=== PATIENT | male | born 1965 | race Caucasian/White ===

== ENCOUNTER 2021-03-04 11:56 | Emergency (ER) | payer OTHER, SELFPAY ==
--- NOTE | ~2021-03-04 | XR_ITS ---
EXAMINATION: XR foot LT min 3V DATE: 03/04/2021 12:11 INDICATION: Right foot pain, initial encounter TECHNIQUE: Dorsoplantar, lateral, and 2 oblique views of the left foot were obtained. COMPARISON: None. FINDINGS: There is an acute, traumatic fracture of the fourth middle phalanx which extends to the pro ximal interphalangeal joint. No definite acute fracture is identified. There is soft tissue swelling of the fourth toe. There is fusion of the third through fifth distal interphalangeal joints. Posterio r and plantar calcaneal enthesophytes are noted. IMPRESSION: 1. Acute fracture of the fourth middle phalanx which extends to the proximal interphalangeal joint. Reviewed, dictated and finalized at location A. IMPRESSION: 1. Acute fracture of the fourth middle phalanx which extends to the proximal in terphalangeal joint.
--- NOTE | 2021-03-04 12:03 | ED.LOWEXIN ---
HPI - Extremity Injury (Lower) General Chief Complaint: Extremity Injury, Lower Stated Complaint: lt foot toe injury Time Seen by Provider: 03/04/21 12:03 Source: patient and RN notes reviewed History of Present Illness HPI Narrative: Patient is a 55-year-old male who presents the urgent care with complaints of pain, bruising and swelling to the fourth digit of the left foot. Patient states that he fell back off a retaining wall approximately 1 hour prior to arrival and has fourth left toe was sideways. Patient states he slapped it back into place and is now having severe pain. Patient also reports of some pain to the right upper back. Denies of hitting his head or any loss of consciousness. States that he was barefoot at the time. Patient has not done anything cehf-[id number] prior to his arrival for pain relief. No other acute complaints. No acute distress noted. Patient aware of the plan of care. Some parts of this dictation were generated by voice recognition software and may contain typographical and/or grammatical inaccuracies. Related Data Allergies Allergy/AdvReac Type Severity Reaction Status Date / Time No Known Allergies Allergy Mild Verified 03/04/21 12:23 Review of Systems Review of Systems: CONSTITUTIONAL: Denies fever, chills, or sweats. EYES: Denies visual changes, redness, or discharge. ENT: Denies rhinorrhea, congestion, sore throat, or otalgia. CARDIOVASCULAR: Denies chest pain, palpitations, or edema. RESPIRATORY: Denies cough or dyspnea. GASTROINTESTINAL: Denies abdominal pain, nausea, vomiting, or diarrhea. GENITOURINARY: Denies dysuria or hematuria. SKIN: Denies rash or itching. MUSCULOSKELETAL: Reports of right-sided back pain and left fourth toe pain NEUROLOGIC: Denies headache, numbness, or weakness. All other systems reviewed are negative, except as documented in HPI. [facility] Past Medical History Medical History Benign essential hypertension Gout (~2017) Normal colonoscopy (~11/2019) Family History Family History Father Hypertension Social History Social History Smoking status: Former smoker Second hand tobacco smoke exposure: No Smoking end date: 06/16/17 Alcohol intake: never Comments At the time of my signature, I reviewed and agree with the nursing past medical, surgical, social, and family history. There is no relevant family history pertinent to the patient complaint. Exam Narrative: GENERAL: This is a well-nourished, well-developed patient, in no apparent distress. HEAD: normocephalic, atraumatic. EYES: PERRL. Sclera clear/white. Vision is grossly intact. EARS: External ears normal NOSE: External nose normal with no obvious nasal discharge, nares without redness, no rhinorrhea. THROAT: Mucous membranes moist NECK: Neck supple CARDIOVASCULAR: Regular rate and rhythm without murmurs, gallops, or rubs. RESPIRATORY: Clear to auscultation. Breath sounds equal bilaterally. No wheezes, rales, or rhonchi. SKIN: Erythemic road rash to the right upper back without any open abrasions. Warm, intact with no suspicious lesions or rash, good texture and turgor. NEURO: awake, alert, and oriented to person, place and time. There were no obvious focal neurologic abnormalities. EXTREMITIES: Moderate tenderness to the left fourth toe with mild edema and moderate ecchymosis. No obvious deformity. Positive strong left pedal pulse with capillary refill less than 2 seconds. Range of motion to left lower extremity within normal limits. BACK: No crepitus Course Vital Signs Vital signs: Vital Signs Temperature 98.4 F 03/04/21 12:15 Pulse Rate 64 03/04/21 12:15 Respiratory Rate 16 03/04/21 12:15 Blood Pressure 144/86 H 03/04/21 12:15 Pulse Oximetry 100 03/04/21 12:15 Temperature 98.4 F 03/04/21 12:15 Pulse Rat
[2021-03-04 12:15] VITALS: BP 144/86; PULSE 64; RESP 16; TEMP 36.9; O2SAT 100
== END 2021-03-04 12:45 | disposition home or self-care (01) ==
PROVIDERS: Emergency Provider Nurse Practitioner Family
DX: S92.525A Nondisplaced fracture of middle phalanx of left lesser toe(s), initial encounter for closed fracture (principal); I10 Essential (primary) hypertension; Z87.891 Personal history of nicotine dependence; W13.8XXA Fall from, out of or through other building or structure, initial encounter
CPT/HCPCS: 73630; 99214; G0463

== ENCOUNTER → 2023-04-10 08:29 | Outpatient (CLI) | payer OTHER, SELFPAY ==
--- NOTE | ~2023-04-10 | XR_ITS ---
EXAMINATION: XR chest 2V 04/10/2023 08:40 INDICATION: Shortness of breath PROCEDURE: 2 view chest COMPARISON: No prior studies for comparison. FINDINGS: The lungs are clear. The cardiomediastinal silhouette is within normal limits. There are no pleural effusions. There is no pneumothorax suspected. IMPRESSION: 1: NO ACUTE CARDIOPULMONARY DISEASE. Reviewed, dictated and finalized at location L.
== END ==
PROVIDERS: PCP Family Medicine; Visit Provider Family Medicine
DX: R06.02 Shortness of breath (principal)
CPT/HCPCS: 71046

== ENCOUNTER 2023-05-07 13:45 | Outpatient (CLI) | payer OTHER, SELFPAY ==
--- NOTE | ~2023-05-07 | CT_ITS ---
EXAMINATION: CT sinus wo con DATE: 05/07/2023 13:58 INDICATION: Sinusitis TECHNIQUE: Computed tomography (CT) of the paranasal sinuses was performed without intravenous contra st. The dose-length product was 294.16 mGy-cm. Automated exposure control and iterative reconstructio n technique were employed. COMPARISON: None FINDINGS: There is mucosal thickening of the right frontal sinus and anterior ethmoid air cells. Ther e is mild mucosal thickening of the sphenoid sinuses. Ostiomeatal units are patent. No significant na anthony septal deviation. Mastoids are pneumatized. IMPRESSION: 1. Mild sinusitis. Reviewed, dictated and finalized at location B. [employer] IMPRESSION: 1. Mild sinusitis.
== END 2023-05-07 13:46 ==
LOC: MICIMG 13:46
PROVIDERS: PCP Family Medicine; Visit Provider Otolaryngology
DX: J34.89 Other specified disorders of nose and nasal sinuses (principal); J31.0 Chronic rhinitis; J32.9 Chronic sinusitis, unspecified
CPT/HCPCS: 70486

== ENCOUNTER 2023-06-04 10:02 | Outpatient (CLI) | payer OTHER, SELFPAY ==
--- NOTE | 2023-06-04 10:08 | EST_ITS ---
Patient Info Name: Humberto Lopez Age: 58 years : 1965 Gender: Male Ht: 72 in Wt: 220 lbs BSA: 2.27 m2 Heart Rhythm: Sinus Rhythm Technical Quality: Good Exam Date: 06/04/2023 10:54 AM Exam Location: Echo Lab Patient Status: Outpatient Admit Date: 06/04/2023 Staff Ordering Physician: Jhoana Pedraza MD Attending Provider: Jhoana Pedraza MD Exercise Technologist: Franny Miller [facility] Exercise Physician: Ta Srinivasan DO Exam Type: CA stress echo Study Info Treadmill exercise stress echocardiogram is performed. Summary 1. 1. Abnormal Glenn exercise stress test for ischemic ST changes by ECG criteria. 2. 2. Good functional capacity, achieving 11 METs of workload. 3. 3. Appropriate HR response to exercise. 4. 4. Appropriate HR recovery at 1 minute post exercise. 5. 5. Abnormal stress echocardiogram for ischemia by wall motion analysis suggesting left anterior descending coronary artery stenosis. 6. 6. Discussed the above results with the patient. Stress Echo Findings Left Ventricle Basal to mid septum is hypokinetic, mid anteroseptum is hypokinetic. Left Ventricle Normal LV systolic function, no wall motion abnormality. Protocol: Glenn Stress ECG Details Stage: REST Duration (min): 1 min : 2 sec Speed (mph): 0.0 Grade (%): 0 HR (bpm): 60 SBP (mmHg): 133 DBP (mmHg): 84 METS: --- Stage: REST Duration (min): 13 min : 3 sec Speed (mph): 0.0 Grade (%): 0 HR (bpm): 64 SBP (mmHg): 133 DBP (mmHg): 84 METS: --- Stage: STAGE 1 Duration (min): 1 min : 0 sec Speed (mph): 1.7 Grade (%): 10 HR (bpm): 96 SBP (mmHg): 133 DBP (mmHg): 84 METS: --- Stage: STAGE 1 Duration (min): 2 min : 0 sec Speed (mph): 1.7 Grade (%): 10 HR (bpm): 97 SBP (mmHg): 133 DBP (mmHg): 84 METS: --- Stage: STAGE 1 Duration (min): 3 min : 0 sec Speed (mph): 1.7 Grade (%): 10 HR (bpm): 98 SBP (mmHg): 170 DBP (mmHg): 94 METS: --- Stage: STAGE 2 Duration (min): 1 min : 0 sec Speed (mph): 2.5 Grade (%): 12 HR (bpm): 110 SBP (mmHg): 170 DBP (mmHg): 94 METS: --- Stage: STAGE 2 Duration (min): 2 min : 0 sec Speed (mph): 2.5 Grade (%): 12 HR (bpm): 116 SBP (mmHg): 178 DBP (mmHg): 90 METS: --- Stage: STAGE 2 Duration (min): 3 min : 0 sec Speed (mph): 2.5 Grade (%): 12 HR (bpm): 116 SBP (mmHg): 178 DBP (mmHg): 90 METS: --- Stage: STAGE 3 Duration (min): 1 min : 0 sec Speed (mph): 3.4 Grade (%): 14 HR (bpm): 128 SBP (mmHg): 174 DBP (mmHg): 89 METS: --- Stage: STAGE 3 Duration (min): 2 min : 0 sec Speed (mph): 3.4 Grade (%): 14 HR (bpm): 136 SBP (mmHg): 174 DBP (mmHg): 89 METS: --- Stage: STAGE 3 Duration (min): 3 min : 0 sec Speed (mph): 3.4 Grade (%): 14 HR (bpm): 141 SBP (mmHg): 178 DBP (mmHg): 89 METS: --- Stage: STAGE 4 Duration (min): 0 min : 33 sec Speed (mph): 0.0 Grade (%): 0 HR (bpm): 149 SBP (
== END 2023-06-04 10:03 | disposition home or self-care (01) ==
LOC: ANHCARD 10:03
PROVIDERS: PCP Family Medicine; Visit Provider Family Medicine
DX: R68.89 Other general symptoms and signs (principal); R94.39 Abnormal result of other cardiovascular function study; I10 Essential (primary) hypertension; R73.03 Prediabetes
CPT/HCPCS: 93351

== ENCOUNTER 2023-06-19 00:57 | Day surgery (SDC) | payer OTHER, SELFPAY ==
[2023-06-18 14:53] VITALS: BMI 29.5
[2023-06-19] VITALS (8 sets, daily range): BP systolic 113–134; BP diastolic 71–95; PULSE 52–62; RESP 10–20; TEMP 36.4; O2SAT 96–100; BMI 29.7
[2023-06-19 07:48] LABS: Basophils Absolute Auto 0.1 K/mm3 (0.0-0.1); Basophils Percent Auto 0.7 % (0.2-1.2); Eosinophils Absolute Auto 0.3 K/mm3 (0-0.3); Eosinophils Percent Auto 3.5 % (0-4.4); Hematocrit 46.9 % (42.0-52.0); Hemoglobin 14.7 g/dL (14.0-18.0); Immature Granulocyte Absolute 0.03 K/mm3 (0.00-0.031); Immature Granulocyte Percent A 0.4 % (0-0.5); Lymphocytes Absolute Auto 2.81 K/mm3 (0.9-3.2); Lymphocytes Percent Auto 38.3 % (18.3-44.2); Mean Corpuscular HGB Conc 31.3 g/dl (32-36); Mean Corpuscular Hemoglobin 28.6 pg (26-34); Mean Corpuscular Volume 91.2 fl (80-100); Monocytes Absolute Auto 0.6 K/mm3 (0.1-0.6); Monocytes Percent Auto 7.6 % (2.6-8.5); Neutrophils Absolute Auto 3.6 K/mm3 (1.3-6.7); Neutrophils Percent Auto 49.5 % (45.5-73.1); Platelet Count Result 282 k/mm3 (150-375); Red Blood Count 5.14 M/mm3 (4.6-6.20); White Blood Count 7.3 K/mm3 (4.5-10.0)
[2023-06-19 08:01] LABS: Anion Gap 10 mmol/L (8-16); Blood Urea Nitrogen 26 mg/dL (9-20); Calcium 8.8 mg/dL (8.4-10.2); Carbon Dioxide 26 mmol/L (22-30); Chloride 104 mmol/L (98-107); Estimated CRCL calculation 85 ml/min; Estimated Glomerular Filt Rate > 60; Glucose 111 mg/dL (65-110); Potassium 4.4 mmol/L (3.4-5.0); Sodium 140 mmol/L (137-145)
--- NOTE | 2023-06-19 09:04 | WPDHPUPDATE1 ---
History and Physical Update Update Date/Time: 06/19/23 09:04 History and Physical has been reviewed, including an updated exam of the patient. There are NO changes in the patient's condition. Risks, benefits, and alternatives have been discussed and questions answered. Patient agrees to proceed with procedure.
--- NOTE | 2023-06-19 09:04 | WPDMODSED ---
Moderate Sedation Note-Pt Data Patient Data Diagnosis: Abnormal stress test Present Complaint: Abnormal stress test Procedure to be performed/Plan: Coronary angiography, left heart cath, +/- PCI Allergies Allergy/AdvReac Type Severity Reaction Status Date / Time No Known Allergies Allergy Mild Verified 06/19/23 07:27 Home Medications Medication Instructions Recorded Confirmed Type antiarthritic combination no.2 900 900 mg PO DAILY 04/09/23 06/18/23 History mg tablet (glucosamine-chondroitin) mecobalamin (vitamin B12) 1,000 1,000 mcg PO DAILY 04/09/23 06/18/23 History mcg lozenges omega 5-ucv-hez-fish oil 60 mg-90 1 cap PO DAILY 04/09/23 06/18/23 History mg-500 mg capsule (Fish Oil) aspirin 81 mg tablet,delayed 81 mg PO DAILY 06/04/23 06/18/23 History release (Adult Low Dose Aspirin) metoprolol succinate 25 mg 25 mg PO DAILY #90 tabs 06/04/23 06/18/23 Rx tablet,extended release 24 hr pravastatin 10 mg tablet 10 mg PO DAILY #90 tabs 06/04/23 06/18/23 Rx multivitamin 1 tablet PO DAILY 06/18/23 06/18/23 History Current Medications: Active Medications Sodium Chloride (Normal Saline Iv) 500 mls @ 100 mls/hr IV CONT .Q5H MIGUEL Sedation/Anesthesia: No previous sedation/anesthesia problems (including family history). [facility] Past Medical History Medical History Benign essential hypertension Gout (~2017) Normal colonoscopy (~11/2019) 6.19.20 Family History Family History Father Hypertension Social History Social History Social History: Caffeine-coffee daily Smoking status: Never smoker Second hand tobacco smoke exposure: No Alcohol intake: never Alcohol use details: rarely Substance use: never Substance use type: does not use Lack of Transportation: No Lack of Food: Never True Current Housing: I Have Housing Concerned About Future Housing: No Difficulty Paying Gas/Electric Bills: No Difficulty Paying for Meds: No Currently Unemployed: No Education: Trade/Vocational Certificate Difficulty w/ Childcare or Family Care: No Living arrangements: with family Spiritual care concerns: No Mod Sed Physical Exam Physical Exam Pre Procedural Exam: Normal: Appearance, Lungs, Heart Rate, Heart Rhythm, Neuro Exam, Abdomen, Extremities and Skin Hours since solid foods: 12 Hours since liquid intake: 8 Mallampati Classification: class III Internal Medicine - PN: Obj Da Vital Signs Vital Signs: Vital Signs - 24 hr 06/19/23 07:30 Temperature 36.4 C Pulse Rate 52 L Respiratory Rate 20 Blood Pressure 134/94 H Pulse Oximetry 98 Oxygen Delivery Room Air Meds/Results Medications: Active Medications Generic Name Dose Route Start Last Admin Trade Name Freq PRN Reason Stop Dose Admin Sodium Chloride 500 mls @ 100 mls/hr 06/19/23 07:00 Normal Saline Iv IV CONT .Q5H MIGUEL Labs 06/19/23 07:39 06/19/23 07:39 Labs: Laboratory Results - last 24 hr 06/19/23 07:39 WBC 7.3 RBC 5.14 Hgb 14.7 Hct 46.9 MCV 91.2 MCH 28.6 MCHC 31.3 L RDW 13.0 Plt Count 282 MPV 10.0 Immature Gran % (Auto) 0.4 Neut % (Auto) 49.5 Lymph % (Auto) 38.3 Desha % (Auto) 7.6 Eos % (Auto) 3.5 Baso % (Auto) 0.7 Lymph # (Auto) 2.81 Desha # (Auto) 0.6 Eos # (Auto) 0.3 Baso # (Auto) 0.1 Abs Immat Gran (auto) 0.03 Absolute Neuts (auto) 3.6 Absolute Nucleated RBC 0.0 Nucleated RBC % 0.0 Sodium 140 Potassium 4.4 Chloride 104 Carbon Dioxide 26 Anion Gap 10 BUN 26 H Creatinine 1.00 Estim Creat Clear Calc 85 Estimated GFR > 60 Glucose 111 H Calcium 8.8 ASA Classification/Sedation ASA Classification/Sedation ASA Class: III Emergent: No Risks: Risks, benefits and alternatives explained and patient/family accepted plan for sedation. Ana
--- NOTE | 2023-06-19 09:05 | WPDCARDPROC ---
Cardiac Cath Procedure Note Date of procedure:: 06/19/23 Performing physician:: CATHETERIZATION LABORATORY REPORT Procedure Date: 06/19/2022 Machine Sewer: Ben Palacio M.D., [facility]? Referring Physician: Dr. Srinivasan ? Anesthesia: Versed and Fentanyl were ordered and given in my presence at 09:19, procedure ended at 09:41. Supervision of nurse monitored moderate sedation with Versed and Fentanyl was provided for 22 minutes. Total of Versed 1mg and Fentanyl 50mcg were administered by the Master Yacht RN Charmaine Grey. Pre-op Diagnosis: Coronary artery disease Post-op Diagnosis: 1. Moderate stenosis in the proximal-mid LAD. 2. ROUNDER HAND of the mid RCA with czje-sx-praew collaterals 3. Left ventricular end-diastolic pressure of 15mmHg Procedure(s): 1. Moderate sedation 2. Ultrasound-guided access of the right common femoral artery 3. Coronary angiography 4. Left heart cath 5. Angioseal closure of the right common femoral artery Access Site: Right common femoral artery (Radial access was not pursued as we are out of TR bands) Brief History and Clinical Indications: Patient is a 58 year old male with dyslipidemia, family history of maternal uncle and grandfather with CAD/CABG who is referred for [facility] for shortness of breath with exertion in the setting of abnormal stress test. All risks, benefits and alternatives to left heart catheterization with or without percutaneous coronary intervention was discussed at length with the patient. Risk of complications including but not limited to bleeding, infection, arrhythmia, stroke, worsening kidney function, blood loss, groin hematoma, limb loss, emergency coronary artery bypass grafting, and even were discussed with the patient and all questions were answered. The patient understood and wished to proceed. Time out called, patient name, date of , medical record number, allergies, procedure performed, identify Machine Sewer, patient and staff member concurred with accurate data, procedure carried on. Findings: LEFT HEART CATHETERIZATION FINDINGS: 1. Left main: The left main coronary artery is widely patent without any significant obstructive disease. 2. Left anterior descending: The LAD has diffuse mild disease with a moderate 50% stenosis in the proximal-mid portion. 3. Ramus: Large caliber vessel. Luminal irregularities. 3. Left circumflex: The left circumflex artery has luminal irregularities. 4. Right coronary artery: The RCA is the dominant vessel. The RCA is ROUNDER HAND in the mid portion. There is a [id number] bridging collateral seen. There are eoxi-me-qgane collaterals supplying the RCA territory. 5. Left ventricle: A. End-diastolic pressure 15mmHg. B. LV gram deferred. C. No significant gradient across aortic valve on catheter pullback. Description of Procedure: Informed consent signed and placed in the chart. Patient transferred to laborer drying department room. Prepped and draped in usual sterile fashion. 2% lidocaine in right groin area. Micropuncture needle used to access right common femoral artery with Seldinger technique under fluoroscopic and ultrasound guidance. J wire advanced, micropuncture cannula placed. Right iliofemoral angiogram performed, access confirmed and micropuncture cannula exchanged for 5-FR sheath. 5F FL 4 diagnostic catheter engaged Left Main Coronary Artery. 5F FR 4 diagnostic catheter engaged Right Coronary Artery. Multiple orthogonal angiogram obtained and reviewed 5F Pigtail diagnostic catheter crossed aortic valve to obtain LVEDP, LV angiogram deferred. Hemostasis was achieved by 6F Angioseal. Post Operative Condition: Stable No significant blood loss Disposition: Home Plan: The patient will be monitored in the recovery area. The above findings were discussed with the referring physician. Continue aggressive medical therapy and risk factor modification. Given his coronary artery disease, recommend to switch his Pravastatin to a higher intens
== END 2023-06-19 13:10 | disposition home or self-care (01) ==
PROVIDERS: PCP Family Medicine; Visit Provider Internal Medicine
PROC: 4A023N7 Measurement of Cardiac Sampling and Pressure, Left Heart, Percutaneous Approach (ICD-10-PCS; CPT 93452; principal; 2023-06-19 08:30)
DX: R94.39 Abnormal result of other cardiovascular function study (principal); I10 Essential (primary) hypertension; Z79.82 Long term (current) use of aspirin
CPT/HCPCS: 36415; 80048; 85025; 93458; A9270; C1760; C1887; C1894; G0269; J1644; J2250; J3010; J7040

== ENCOUNTER 2023-10-06 10:46 | Outpatient (CLI) | payer OTHER, SELFPAY ==
--- NOTE | ~2023-10-06 | XR_ITS ---
EXAMINATION: XR knee RT 3V DATE: 10/06/2023 11:08 INDICATION: Right knee pain. TECHNIQUE: 3 views of right knee including standing views were obtained. COMPARISON: None. FINDINGS: Bone alignment is normal. No fracture. There is mild osteoarthritis of medial and patellofe moral compartments. No knee joint effusion. IMPRESSION: 1. Mild right knee osteoarthritis. Reviewed, dictated and finalized at location E.
== END 2023-10-06 10:47 ==
PROVIDERS: PCP Family Medicine; Visit Provider Nurse Practitioner Family
DX: M17.11 Unilateral primary osteoarthritis, right knee (principal)
CPT/HCPCS: 73562

== ENCOUNTER 2024-10-26 08:08 | Outpatient (CLI) | payer OTHER, SELFPAY ==
--- NOTE | ~2024-10-26 | XR_ITS ---
XR hand LT min 3V Ordering provider: Darian Blair APRN History: . Pain in thumb left hand x 5-6 months, no injury . Comparison: None. FINDINGS: BONES: No acute fracture or dislocation. JOINT SPACES: Mild osteoarthritic changes of the first carpometacarpal joint. Otherwise, well maintai gabriela. SOFT TISSUES: Unremarkable. IMPRESSION: No acute osseous abnormality left hand. Reviewed, dictated and finalized at location A.
== END 2024-10-26 08:09 | disposition home or self-care (01) ==
LOC: GOSHIMG 08:08
PROVIDERS: PCP Family Medicine; Visit Provider Student in an Organized Health Care Education/Training Program
DX: M79.645 Pain in left finger(s) (principal)
CPT/HCPCS: 73130